=== PATIENT | male | born 1970 | race Two or more races ===

== ENCOUNTER → 2025-10-04 | Outpatient (CLI) | payer BC, SELFPAY ==
--- NOTE | 2025-10-04 | XR_ITS ---
Examination: Ribs, right, with PA chest, 5 views Technique: Chest PA, RIBS AP, RPO, LPO, AP coned lower ribs 5 views Exam date and time: October 04, 2025, 1217 hours INDICATIONS: Right anterior rib pain 3 months no trauma Findings: Minimal prominence left ventricle No pneumothorax pneumonia or pulmonary edema Mild osteopenia Right ribs appear intact IMPRESSION: No pneumothorax pneumonia or pulmonary edema Ribs appear intact
== END | disposition home or self-care (01) ==
PROVIDERS: PCP Physician Assistant; Referring Provider Physician Assistant; Visit Provider Physician Assistant
DX: R07.82 Intercostal pain (principal)
CPT/HCPCS: 71101